=== PATIENT | male | born 1960 | race Caucasian/White ===

== ENCOUNTER 2019-08-14 17:08 | Emergency (ER) | payer BC ==
[~2019-08-14] VITALS: Ht 172.7 cm; Wt 99.8 kg
[~2019-08-14 17:08] MED LIST: ASPI325 PO; ATOR80 PO; CLOP75 PO; CLOT1TC TOP; CYCL10 PO; HYDACE5 PO; HYDCOR1TC TOP; LISI5 PO; METO25ER PO; XARELTO20 MG PO
[2019-08-14 17:45] LABS: BASOPHILS ABSOLUTE AUTO 0.06 K/mm3 (0.00-0.23); BASOPHILS PERCENT AUTO 1 % (0-2); EOSINOPHILS ABSOLUTE AUTO 0.26 K/mm3 (0.00-0.68); EOSINOPHILS PERCENT AUTO 3 % (0-6); Hematocrit 38.6 % (37.0-53.0); Hemoglobin 12.7 g/dL (13.5-17.5); IMMATURE GRAN ABSOLUTE AUTO 0.04 K/mm3 (0.00-0.10); IMMATURE GRAN PERCENT AUTO 0 % (0-1); LYMPHOCYTES ABSOLUTE AUTO 2.97 K/mm3 (0.84-5.20); LYMPHOCYTES PERCENT AUTO 33 % (21-46); MONOCYTES PERCENT AUTO 11 % (4-13); Mean Corpuscular HGB 28.5 pg (26.0-34.0); Mean Corpuscular HGB Conc 32.9 g/dL (31.5-36.5); Mean Corpuscular Volume 87 fL (80-100); Mean Platelet Volume 9.6 fL (9.1-12.4); NEUTROPHILS PERCENT AUTO 53 % (41-73); Platelet Count 268 K/mm3 (150-400); RDW Coefficient Variation 13.1 % (11.7-14.2); RDW Standard Deviation 41.1 fL (35.1-46.3); Red Blood Cell Count 4.46 M/mm3 (4.30-5.90); White Blood Cell Count 9.13 K/mm3 (4.00-11.30)
[2019-08-14 17:58] LABS: Alanine Aminotransfer (ALT/SGP 20 U/L (12-78); Albumin, Blood 3.1 g/dL (3.4-5.0); Albumin/Globulin Ratio 0.9 (0.8-1.8); Alk Phos 102 U/L (50-136); Anion Gap 2 mmol/L (6-16); Aspartate Aminotrans (AST/SGOT 13 U/L (12-37); Bilirubin, Total 0.2 mg/dL (0.1-1.0); Blood Urea Nitrogen 13 mg/dL (8-24); Bun/Creatinine Ratio 12.6 (12.0-20.0); CO2, Blood 30 mmol/L (21-32); Calcium, Blood 8.3 mg/dL (8.5-10.1); Chloride, Blood 107 mmol/L (98-108); Creatinine, Blood 1.03 mg/dL (0.60-1.20); Globulin, Blood 3.6 g/dL (2.2-4.0); Glomerular Filtration Rate >60 (60-); Glucose, Blood 99 mg/dL (70-99); Potassium, Blood 3.9 mmol/L (3.5-5.5); Sodium, Blood 139 mmol/L (136-145); Total Protein, Blood 6.7 g/dL (6.4-8.2)
== END 2019-08-14 19:31 | disposition home or self-care (01) ==
LOC: ER 17:08
PROVIDERS: Physician Assistant
DX: R07.89 Other chest pain (principal); I25.10 Atherosclerotic heart disease of native coronary artery without angina pectoris; I10 Essential (primary) hypertension; E78.5 Hyperlipidemia, unspecified; F17.200 Nicotine dependence, unspecified, uncomplicated; Z88.6 Allergy status to analgesic agent; Z88.8 Allergy status to other drugs, medicaments and biological substances; Z79.899 Other long term (current) drug therapy; Z79.82 Long term (current) use of aspirin; Z79.01 Long term (current) use of anticoagulants
CPT/HCPCS: 36415; 71046; 80053; 84484; 85025; 93005; 93010; 99284-25; A9270

== ENCOUNTER → 2021-05-08 | Outpatient (CLI) | payer BC ==
[2021-05-08 14:01] LABS: Hematocrit 39.4 % (37.0-53.0); Hemoglobin 13.3 g/dL (13.5-17.5); Mean Corpuscular HGB Conc 33.8 g/dL (31.5-36.5); Mean Corpuscular Volume 83 fL (80-100); Mean Platelet Volume 10.1 fL (9.1-12.4); Platelet Count 418 K/mm3 (150-400); RDW Coefficient Variation 13.6 % (11.7-14.2); RDW Standard Deviation 40.9 fL (35.1-46.3); Red Blood Cell Count 4.75 M/mm3 (4.30-5.90); White Blood Cell Count 8.07 K/mm3 (4.00-11.30)
[2021-05-08 14:14] LABS: Albumin, Blood 2.6 g/dL (3.4-5.0); Albumin/Globulin Ratio 0.6 (0.8-1.8); Bilirubin, Total 0.7 mg/dL (0.1-1.0); Bun/Creatinine Ratio 19.1 (12.0-20.0); Calcium, Blood 8.3 mg/dL (8.5-10.1); Creatinine, Blood 1.41 mg/dL (0.60-1.20); Globulin, Blood 4.6 g/dL (2.2-4.0); Potassium, Blood 3.7 mmol/L (3.5-5.5); Total Protein, Blood 7.2 g/dL (6.4-8.2)
[2021-05-08 14:29] LABS: BAND PERCENT MAN 1 % (0-8); BASOPHILS ABSOLUTE MAN 0.08 K/mm3 (0.00-0.23); BASOPHILS PERCENT MAN 1 % (0-2); EOSINOPHILS PERCENT MAN 0 % (0-6); LYMPHOCYTES ABSOLUTE MAN 1.53 K/mm3 (0.84-5.20); LYMPHOCYTES PERCENT MAN 19 % (21-46); MONOCYTES PERCENT MAN 5 % (4-13); NEUTROPHILS ABSOLUTE MAN 6.05 K/mm3 (1.96-9.15); SEG NEUTROPHILS PERCENT MAN 74 % (41-73); TOTAL CELLS COUNTED 100
== END | disposition home or self-care (01) ==
LOC: LAB SHORT 13:54 → LAB 13:54
PROVIDERS: Physician Assistant
DX: R42 Dizziness and giddiness (principal)
CPT/HCPCS: 80053; 85025

== ENCOUNTER 2024-08-18 09:42 | Inpatient (IN) | payer OTHER ==
[~2024-08-18] VITALS: Ht 175.3 cm; Wt 113.3 kg
[~2024-08-18 09:42] MED LIST changes: -ALBU90OI INH; -AMLODIPINE BESYL5 MG PO; -ASPI81CH PO; -AZIT500 PO; -DULERA 100 MCG-13 GM INH; -ELIQUIS5 M3 PO; -Lisinopril2.5 MG PO; -METO100ER PO; -OSEL75CA PO; -Prednisone10 MG PO; -ROSUVASTATIN CA40 MG PO
[2024-08-18] MEDS ORDERED: ELIQUIS5 M3 PO (09:59)
[2024-08-18] MEDS ORDERED: AMLODIPINE BESYL5 MG PO (09:59)
[2024-08-18] MEDS ORDERED: Albuterol 2.5 MG/3 ML VIAL INH SCH (10:00)
[2024-08-18] MEDS ORDERED: Oseltamvir Phosphate 6 MG/ML 1MLORALSYR PO ONE (10:00)
[2024-08-18] MEDS ORDERED: ROSUVASTATIN CA40 MG PO (10:00)
[2024-08-18] MEDS ORDERED: MethylPREDNISolone Sod Succ 125 MG Vial IV ONE (10:00)
[2024-08-18] MEDS ORDERED: Lisinopril2.5 MG PO (10:00)
[2024-08-18] MEDS ORDERED: Ipratropium Bromide INH 0.02% 0.5 mg/2.5ML Vial INH SCH (10:00)
[2024-08-18] MEDS ORDERED: Oseltamivir Phosphate 75 MG Cap PO ONE (10:00)
[2024-08-18 10:10] LABS: BASOPHILS ABSOLUTE AUTO 0.03 K/mm3 (0.00-0.23); BASOPHILS PERCENT AUTO 1 % (0-2); EOSINOPHILS ABSOLUTE AUTO 0.03 K/mm3 (0.00-0.68); EOSINOPHILS PERCENT AUTO 1 % (0-6); Hematocrit 44.5 % (37.0-53.0); IMMATURE GRAN ABSOLUTE AUTO 0.03 K/mm3 (0.00-0.10); IMMATURE GRAN PERCENT AUTO 1 % (0-1); LYMPHOCYTES ABSOLUTE AUTO 0.91 K/mm3 (0.84-5.20); LYMPHOCYTES PERCENT AUTO 14 % (21-46); MONOCYTES ABSOLUTE AUTO 0.73 K/mm3 (0.16-1.47); MONOCYTES PERCENT AUTO 11 % (4-13); Mean Corpuscular HGB 28.3 pg (26.0-34.0); Mean Corpuscular HGB Conc 33.7 g/dL (31.5-36.5); Mean Corpuscular Volume 84 fL (80-100); NEUTROPHILS ABSOLUTE AUTO 4.73 K/mm3 (1.96-9.15); NEUTROPHILS PERCENT AUTO 73 % (41-73); Platelet Count 277 K/mm3 (150-400); RDW Coefficient Variation 13.3 % (11.7-14.2); RDW Standard Deviation 40.7 fL (35.1-46.3); White Blood Cell Count 6.46 K/mm3 (4.00-11.30)
[2024-08-18 10:26] LABS: Albumin, Blood 3.1 g/dL (3.4-5.0); Albumin/Globulin Ratio 0.8 (0.8-1.8); Bilirubin, Total 0.4 mg/dL (0.1-1.0); Bun/Creatinine Ratio 9.4 (12.0-20.0); Calcium, Blood 8.7 mg/dL (8.5-10.1); Creatinine, Blood 1.49 mg/dL (0.60-1.20); Potassium, Blood 3.4 mmol/L (3.5-5.5); Total Protein, Blood 7.1 g/dL (6.4-8.2)
[2024-08-18] MEDS ORDERED: Aspirin 325 MG Tab PO ONE (11:15)
[2024-08-18] MEDS ORDERED: Potassium Chloride 20 MEQ TabCR PO STA (12:28)
[2024-08-18] MEDS ORDERED: FLU VACC TS2024-25(6MOS UP)/PF 45 MCG/0.5 ML SYRINGE IM SCH (12:30)
[2024-08-18] MEDS ORDERED: Ipratropium/Albuterol SulF 2.5-0.5MG/3 ML Amp INH SCH (12:30)
[2024-08-18] MEDS ORDERED: Albuterol 2.5 MG/3 ML VIAL INH PRN (12:35)
[2024-08-18] MEDS ORDERED: Lactated Ringer's 1,000 ML IV SCH (12:55)
[2024-08-18] MEDS ORDERED: Metoprolol Tartrate 25 MG Tab PO SCH (13:00)
[2024-08-18] MEDS ORDERED: Azithromycin 250 MG Tab PO SCH (13:00)
[2024-08-18] MEDS ORDERED: NS 1,000 ML IV SCH (13:15)
[2024-08-18] MEDS ORDERED: LISI5 PO (15:13)
--- NOTE | 2024-08-18 17:03 | NUR ---
PT ARRIVES TO UNIT AT 1455, REPORT RECEIVED FROM DIRECTOR COLLEGE. PT ARRIVES VIA WHEELCHAIR AND IS ABLE TO TRANSFER TO HOSPITAL BED INDEPENDENTLY. PT IS A/OX4, OBEYS COMMANDS, VERBALIZES NEEDS. PT DENIES CHEST PAIN/PRESSURE AT THIS TIME. IN AFIB WITH RATE IN 90'S-100'S. PEDAL AND RADIAL PULSES STRONG. PT IS ON ROOM AIR AND SATTING ABOVE 90%. AUDIBLE WHEEZING NOTED ON EXHALATION. LUNG SOUNDS DIM WITH WHEEZING IN ALL SIMMONS. PT IS CONTINENT OF URINE AND STOOL. SKIN IS INTACT.
[2024-08-18] MEDS ORDERED: MethylPREDNISolone Sod Succ 125 MG Vial IV SCH (18:00)
--- NOTE | 2024-08-18 18:39 | NUR ---
SHIFT SUMMARY NO ACUTE EVENTS SINCE ADMIT. PT IS ALERT AND ORIENTED AND RESTING COMFORTABLY IN BED ON RA SATTING ABOVE 90%.
[2024-08-18 19:48] VITALS: BP 134/96
[2024-08-18] MEDS ORDERED: Rosuvastatin Calcium 10 MG Tab PO SCH (21:00)
[2024-08-18] MEDS ORDERED: Apixaban 5 MG Tab PO SCH (21:00)
[2024-08-18] MEDS ORDERED: Oseltamivir Phosphate 75 MG Cap PO SCH (21:00)
[2024-08-18 23:37] VITALS: BP 124/94
[2024-08-19 02:27] LABS: Albumin, Blood 2.9 g/dL (3.4-5.0); Albumin/Globulin Ratio 0.8 (0.8-1.8); Bilirubin, Total 0.2 mg/dL (0.1-1.0); Bun/Creatinine Ratio 14.4 (12.0-20.0); Calcium, Blood 8.3 mg/dL (8.5-10.1); Creatinine, Blood 1.11 mg/dL (0.60-1.20); Globulin, Blood 3.8 g/dL (2.2-4.0); Potassium, Blood 3.9 mmol/L (3.5-5.5); Total Protein, Blood 6.7 g/dL (6.4-8.2)
[2024-08-19 02:38] LABS: Hematocrit 41.7 % (37.0-53.0); Hemoglobin 14.2 g/dL (13.5-17.5); Mean Corpuscular HGB 28.6 pg (26.0-34.0); Mean Corpuscular HGB Conc 34.1 g/dL (31.5-36.5); Mean Corpuscular Volume 84 fL (80-100); Mean Platelet Volume 10.1 fL (9.1-12.4); Platelet Count 247 K/mm3 (150-400); RDW Coefficient Variation 13.2 % (11.7-14.2); RDW Standard Deviation 40.9 fL (35.1-46.3); Red Blood Cell Count 4.96 M/mm3 (4.30-5.90); White Blood Cell Count 3.85 K/mm3 (4.00-11.30)
[2024-08-19 03:44] VITALS: BP 155/94
--- NOTE | 2024-08-19 04:59 | NUR ---
SHIFT SUMMARY PT A&OX4. VSS ON RA. PT HAS INCREASED WORK OF BREATHING WITH ACTIVITY HOWEVER REMAINS >92%. PT AFIB IN 80s ON MONITOR, METOPROLOL GIVEN Q6HR FOR RATE CONTROL. PT GIVEN SOLUMEDROL PER ORDERS. PT FINISHED UP 1L NS PER ORDERS. AMBULATING TO BATHROOM WITH ONE ASSIST. NO C/O PAIN. NO FURTHER QUESTIONS OR CONCERNS AT THIS TIME. CALL TONY WITHIN REACH. WILL REPORT TO ONCOMING NURSE.
[2024-08-19 07:52] VITALS: BP 146/105
[2024-08-19] MEDS ORDERED: Atorvastatin 40 MG Tab PO SCH (09:00)
[2024-08-19] MEDS ORDERED: Aspirin 81 MG Chew PO SCH (09:00)
[2024-08-19 12:15] VITALS: BP 142/99
--- NOTE | 2024-08-19 12:44 | NUR ---
REPORT GIVEN TO MED FLOOR NURSE AT 1215, PT TRANSFERRED TO MEDICAL FLOOR AT 1230 VIA WHEELCHAIR BY AIDE WITH ALL BELONGINGS. PT ON ROOM AIR AND SATTING ABOVE 90%. VSS BEFORE DEPARTURE.
[2024-08-19 15:47] VITALS: BP 127/89
--- NOTE | 2024-08-19 16:04 | NUR ---
PATIENT IS ALERT AND ORIENTED AND COOPERATIVE WITH CARE. ON RA. EXPIRATORY WHEEZES HEARD THROUGHOUT ALL LUNG SIMMONS. BREATHING TREATMENTS BY RESPIRATORY CARE. PATIENT TRANSFERRED TO MEDICAL FLOOR AT AROUND NOON THIS SHIFT. INDEPENDENT TO THE BATHROOM. CALLS APPROPRIATELY. NO C/O SOB. WILL CONTINUE TO MONITOR.
[2024-08-19 18:41] VITALS: BP 132/91
[2024-08-19 21:04] VITALS: BP 134/94
[2024-08-20 04:30] VITALS: BP 131/108
[2024-08-20 04:39] LABS: Hematocrit 42.6 % (37.0-53.0); Hemoglobin 14.6 g/dL (13.5-17.5); Mean Corpuscular HGB 28.7 pg (26.0-34.0); Mean Corpuscular HGB Conc 34.3 g/dL (31.5-36.5); Mean Corpuscular Volume 84 fL (80-100); Mean Platelet Volume 10.2 fL (9.1-12.4); Platelet Count 273 K/mm3 (150-400); RDW Coefficient Variation 13.3 % (11.7-14.2); Red Blood Cell Count 5.08 M/mm3 (4.30-5.90); White Blood Cell Count 14.99 K/mm3 (4.00-11.30)
[2024-08-20 04:57] LABS: Bun/Creatinine Ratio 21.9 (12.0-20.0); Calcium, Blood 8.5 mg/dL (8.5-10.1); Creatinine, Blood 1.05 mg/dL (0.60-1.20); Potassium, Blood 3.7 mmol/L (3.5-5.5)
--- NOTE | 2024-08-20 06:12 | NUR ---
SHIFT SUMMARY: Pt is admitted for acute hypoxic respiratory failure and is a full code. Is alert and able to make needs known. ADLs have been IND. denies pain or discomfort when asked. Telly reports a fib in the 100s with PVCs. not on O2 at this time. On droplet ISO for flu A.
[2024-08-20 07:55] VITALS: BP 137/94
--- NOTE | 2024-08-20 09:00 | NUR ---
pt sitting up in bed eating breakfast, a/ox4 pleasant and cooperative with care, follows commands well, denies pain at this time, states he's feeling much better than when he came in, lungs have course exp wheezing t/o, resp even and unlabored, has unproductive cough, on r/a, hrirr, tele in place runnning afib per monitor, see strip, no edema noted, ppp+2, cap refill<3 sec, vs stable, afebrile, piv to rac, site is clear and patent, btx4, abd flat soft nontender, voids without diff, skin c/w/d, maew, christine, call light in reach.
[2024-08-20 17:42] VITALS: BP 140/87
[2024-08-20] MEDS ORDERED: Mometasone/Formoterol MDI 100/5 mcg 13 GM INH SCH (18:10)
[2024-08-20] MEDS ORDERED: Ipratropium Bromide INH 0.02% 0.5 mg/2.5ML Vial INH SCH (18:15)
--- NOTE | 2024-08-20 18:33 | NUR ---
pt states he's doing well, is hoping to go home tomorrow, no complaints or acute changes this shift. call light in reach.
[2024-08-20 20:48] VITALS: BP 140/82
--- NOTE | 2024-08-21 05:35 | NUR ---
SHIFT SUMMARY: Pt is admitted for acute hypoxic respiratory failure and is a full code. Is alert and able to make needs known. ADLs have been IND. denies pain or discomfort when asked. Telly reports a fib in the 80s with PVCs. not on O2 at this time. On droplet ISO for flu A.
[2024-08-21 05:39] VITALS: BP 140/98
[2024-08-21 07:54] VITALS: BP 138/85
--- NOTE | 2024-08-21 08:54 | NUR ---
Pt laying in bed with eyes closed, wakes easily, a/ox4, pleasant and cooperative with care, follows commands well, denies pain, states he slept on and off during the night, lungs have exp wheezing t/o, maybe a bit less than yesterday, but still t/o and ana noted to anterior, on r/a, nonproductive cough, hrirr, tele in place running afib per monitor, see strip, no edema noted, ppp+2, cap refill <3 sec, vs stable, afebrile, piv to rac site is clear and patent, btx4, abd flat soft nontender, voids without diff, skin c/w/d, maew, up ad marie, gait noted to be steady, christine, call light in reach.
[2024-08-21] MEDS ORDERED: MethylPREDNISolone Sod Succ 40 MG VIAL IV SCH (09:00)
[2024-08-21] MEDS ORDERED: ASPI81CH PO (11:17)
[2024-08-21] MEDS ORDERED: AZIT500 PO (11:19)
[2024-08-21] MEDS ORDERED: DULERA 100 MCG-13 GM INH (11:20)
[2024-08-21] MEDS ORDERED: ALBU90OI INH (11:21)
[2024-08-21] MEDS ORDERED: OSEL75CA PO (11:21)
[2024-08-21] MEDS ORDERED: METO100ER PO (11:23)
[2024-08-21] MEDS ORDERED: Prednisone10 MG PO (11:24)
--- NOTE | 2024-08-21 11:54 | NUR ---
Pt has been discharged to home, faxed new medications to [facility], went over discharge instructions with pt, he verbalizes understanding, iv removed intact, will leave via wheelchair after lunch. call light in reach.
--- NOTE | 2024-08-21 13:51 | NUR ---
Pt ride here, left via wheelchair with coating and baking operator in attendence with all his belongings.
== END 2024-08-21 13:41 | disposition home or self-care (01) | DRG 193 ==
LOC: ER 09:42 → ERHOLD 12:26 → PCU 12:26 → MEDS 08-19 12:40
PROVIDERS: Student in an Organized Health Care Education/Training Program; ADMIT Internal Medicine
DX: J10.1 Influenza due to other identified influenza virus with other respiratory manifestations (principal); I21.A1 Myocardial infarction type 2; J96.01 Acute respiratory failure with hypoxia; J44.1 Chronic obstructive pulmonary disease with (acute) exacerbation; E87.20 Acidosis, unspecified; I10 Essential (primary) hypertension; E78.5 Hyperlipidemia, unspecified; I48.0 Paroxysmal atrial fibrillation; E66.9 Obesity, unspecified; I25.10 Atherosclerotic heart disease of native coronary artery without angina pectoris; E87.6 Hypokalemia; I25.2 Old myocardial infarction; Z95.5 Presence of coronary angioplasty implant and graft; Z79.01 Long term (current) use of anticoagulants; Z79.899 Other long term (current) drug therapy; Z88.8 Allergy status to other drugs, medicaments and biological substances; Z87.891 Personal history of nicotine dependence
CPT/HCPCS: 36415; 71045; 80048; 80053; 83605; 84145; 84484; 85025; 85027; 93005; 93010; 93306; 94640; 94644; 94664; 94760; 94762; 96374; 99285-25; A9270; J2919; J7030

== ENCOUNTER → 2024-08-18 | Outpatient (CLI) | payer OTHER ==
[~2024-08-18] MED LIST changes: +ALBU90OI INH; +AMLODIPINE BESYL5 MG PO; +ASPI81CH PO; +AZIT500 PO; +DULERA 100 MCG-13 GM INH; +ELIQUIS5 M3 PO; +Lisinopril2.5 MG PO; +METO100ER PO; +OSEL75CA PO; +Prednisone10 MG PO; +ROSUVASTATIN CA40 MG PO
[2024-08-18 08:41] LABS: BASOPHILS ABSOLUTE AUTO 0.03 K/mm3 (0.00-0.23); BASOPHILS PERCENT AUTO 1 % (0-2); EOSINOPHILS ABSOLUTE AUTO 0.06 K/mm3 (0.00-0.68); EOSINOPHILS PERCENT AUTO 1 % (0-6); Hematocrit 45.5 % (37.0-53.0); Hemoglobin 15.6 g/dL (13.5-17.5); IMMATURE GRAN ABSOLUTE AUTO 0.02 K/mm3 (0.00-0.10); IMMATURE GRAN PERCENT AUTO 0 % (0-1); LYMPHOCYTES ABSOLUTE AUTO 1.61 K/mm3 (0.84-5.20); LYMPHOCYTES PERCENT AUTO 25 % (21-46); MONOCYTES ABSOLUTE AUTO 1.18 K/mm3 (0.16-1.47); MONOCYTES PERCENT AUTO 18 % (4-13); Mean Corpuscular HGB 28.3 pg (26.0-34.0); Mean Corpuscular HGB Conc 34.3 g/dL (31.5-36.5); Mean Corpuscular Volume 83 fL (80-100); Mean Platelet Volume 9.9 fL (9.1-12.4); NEUTROPHILS ABSOLUTE AUTO 3.53 K/mm3 (1.96-9.15); NEUTROPHILS PERCENT AUTO 55 % (41-73); Platelet Count 284 K/mm3 (150-400); RDW Coefficient Variation 13.2 % (11.7-14.2); RDW Standard Deviation 39.8 fL (35.1-46.3); Red Blood Cell Count 5.51 M/mm3 (4.30-5.90); White Blood Cell Count 6.43 K/mm3 (4.00-11.30)
[2024-08-18 08:58] LABS: Albumin, Blood 3.3 g/dL (3.4-5.0); Albumin/Globulin Ratio 0.8 (0.8-1.8); Bilirubin, Total 0.3 mg/dL (0.1-1.0); Bun/Creatinine Ratio 9.1 (12.0-20.0); Calcium, Blood 8.9 mg/dL (8.5-10.1); Creatinine, Blood 1.54 mg/dL (0.60-1.20); Globulin, Blood 4.1 g/dL (2.2-4.0); Potassium, Blood 3.3 mmol/L (3.5-5.5); Total Protein, Blood 7.4 g/dL (6.4-8.2)
== END | disposition home or self-care (01) ==
LOC: LAB SHORT 08:36
PROVIDERS: Emergency Medicine
DX: I48.91 Unspecified atrial fibrillation (principal)
CPT/HCPCS: 80053; 83880; 84484; 85025